=== PATIENT | female | born 1970 | race Caucasian/White ===

== ENCOUNTER 2017-12-17 05:54 | Inpatient (IN) | payer SELFPAY ==
[2017-12-14 10:59] LABS: Hematocrit 40.9 % (37-47); Hemoglobin 13.3 g/dl (12.0-15.0); Mean Corp Hgb Conc 32.5 g/gl (32-36); Mean Corpuscular Hgb 27.1 pg (27.0-32.0); Mean Corpuscular Volume 83.5 fL (81-99); Mean Platelet Vol. 9.8 fl (6.2-12.0); Platelet Count 188 K/mm3 (150-450); White Blood Count 4.3 K/mm3 (4.4-11.0)
[2017-12-14 11:02] LABS: Scan Indicated on CBC? Y/N YES- FLAGS NOTED
[2017-12-14 11:07] LABS: International Normalized Ratio 1.2; Prothrombin Time (Protime)PT. 14.3 SECONDS (11.7-14.9)
[2017-12-14 11:08] LABS: Partial Thromboplast Time 27.5 Seconds (24.1-36.2)
[2017-12-14 11:16] LABS: Pregnancy, Serum, hCG Quali. NEGATIVE Negative (0-9 Nonpreg)
[2017-12-14 11:21] LABS: Differential Comment SCANNED
[2017-12-17] VITALS (12 sets, daily range): BP systolic 90–140; BP diastolic 46–75; PULSE 56–74; RESP 16–18; TEMP 36.1–37.3; O2SAT 95–100; BMI 32.9
--- NOTE | 2017-12-17 | HYST_PTH ---
PATIENT: WIL SHORE LOC: MS2 U#:[id number] AGE/SX: 47/F ROOM: [facility] [place] [facility] [place]12/17/[address]: Dr. Jason Lion MD : 1970 BED: 1 DIS: 12/18/2017 SPEC #: [id number] RECD: 12/17/17 14:35 STATUS: MARYAN PAUL #: [id number] KATERYNA: 12/17/17 00:[address]: Jason Lion DEPT: SURGICAL PATHOLOGY RECD BY: Colton Lawler ENTERED: 12/17/17 14:35 SP TYPE: HYSTERECT OTHR DR: Dr. Dick Enamorado, DO Tissues: Uterus, NOS Procedures: Surgery Specimen Level V HEADER OPERATION: Total abdominal hysterectomy, bilateral salpingectomy, right oophorectomy PRE-OP DIAGNOSIS: Excessive and frequent menstruation with irregular cycle; intramural and submucous leiomyoma of uterus TISSUE SUBMITTED: Uterus, bilateral fallopian tubes, right ovary MICROSCOPIC DIAGNOSIS Uterus, hysterectomy: Cervix ? chronic inflammation and nabothian cysts. Endometrium ? secretory endometrium. Myometrium ? leiomyomas. Right and left fallopian tubes ? no pathologic change. Right ovary ? corpus luteal cyst and corpora albicantia. AM:law 12/18/17 MICROSCOPIC DESCRIPTION Slides are reviewed. GROSS DESCRIPTION Received in fixative is one container labeled with the patient's name and designated uterus. The specimen consists of a uterus with attached cervix and attached right and left fallopian tubes and a detached ovary. The uterus with cervix measures 13 x 9 x 7 cm and weighs 305 gm. The ectocervix is unremarkable and the cervical os is fishmouth in contour. The endocervical canal measures 3.6 cm in length and is grossly unremarkable. The endometrial cavity measures 6.5 x 4 cm. The endometrium is light moran, velvety and glistening and measures up to 0.2 cm in thickness. The myometrium measures 2.5 cm in greatest thickness and is distortion by multiple rubbery nodules representing leiomyomas and ranging in size from 0.5 cm to 4.3 cm. On cut sections, the nodules reveal a whorled appearance without areas of cyst formation, necrosis or hemorrhage. The nodules are intramural and submucosal in location. The right and left fallopian tubes are similar in appearance averaging 6 cm in length and 0.5 cm in average diameter. The fimbriated ends are normal in appearance and no mass lesions are seen. The ovary free in the container measures 4 x 2.5 x 1.2 cm and serial sections do not reveal mass lesions. Guide Alpine sections are submitted in 11 cassettes as follows: 1 - anterior cervix, 2 - posterior cervix, 3 & 4 - anterior uterine wall, 5 & 6 - posterior uterine wall, 7 ? largest myometrial mass, 8 ? smaller myometrial masses, 9 ? right fallopian tube, 10 ? left fallopian tube, 11 ? ovary free in container. / AM:law 12/17/17 TC:1 CPT: 66947
[2017-12-17 06:26] LABS: Internal QC Validated? YES +Cl - CLEAR BKGD; Pregnancy, Urine Negative Negative
--- NOTE | 2017-12-17 07:31 | OP.PCM_ITS ---
Problem List (1) Fibroid uterus Status: Chronic Qualifiers: Uterine leiomyoma location: intramural and submucous Qualified Code(s): D25.1 - Intramural leiomyoma of uterus; D25.0 - Submucous leiomyoma of uterus (2) Anemia Status: Chronic Qualifiers: Anemia type: iron deficiency Iron deficiency anemia type: chronic blood loss Qualified Code(s): D50.0 - Iron deficiency anemia secondary to blood loss (chronic) Report of Operation Date of Procedure: 12/17/17 Pre-Operative Diagnosis: Fibroid uterus with menorrhagia and chronic anemia Post-Operative Diagnosis: Same Surgery/Procedure Performed:: JAMES/Bilateral salpingectomy/right oophorectomy Description of Surgical Findings:: Large fibroid uterus about 16 weeks size with dense adhesions of bladder to lower uterine segment and anterior cervix. Left ovary with 4cm simple cyst. youth court judge: Mary Nix Type of Anesthesia:: General Anesthesiologist: Ezequiel Cifuentes Specimen's removed: Uterus, cervix, bilateral fallopian tubes Drains: dailey Estimated Blood Loss (mL): 300cc Fluids Replaced: 3000cc LR Description of Procedure: Pushpa was taken to the OR with IV running. She was given two grams of Cefotetan IV prior to the procedure as prophylaxis. SCDs were in place and operational from the preop area through surgery and into recovery. General anesthesia was introduced without complication. A dailey catheter was placed. The patient was then prepped and draped in the supine position. A Pfannesteil incision was then made through her previous lower abdominal scar. The underlying subcutaneous tissue was dissected down to the level of fascia using sharp and blunt dissection. The fascia was then incised in the midline and this incision was extended bilaterally using the Simental scissors. The upper portion of the fascial defect was then graped with two Kerwin clamps, elevated, aand the underlying rectus muscles were dissected off with sharp and blunt dissection. In a similar fashion the rectus muscles were from the lower portion of the fascial incision. The rectus muscles were then in the midline , the peritoneum identified and entered sharply. The peritoneal defect was extended using blunt retraction. A self retaining retractor was placed and the bowel packed away with damp sponges. Kerwin clamps were placed on the cornua of the uterus bilaterally. The right round ligament was then identified, grasped with a Sapna clamp. The round ligament was then suture ligated and cut. The anterior and posterior leaves of the Broad ligament were then cut down to the level of the uterine arteries. The vesicouterine peritoneum was then undermined and cut transversely and a bladder flap was created. The right infindibulopelvic ligament was then doubly clamped cut and suture ligated. The right uterine artery was then clamped with a Zeppalin clamp, cut and suture ligated. The paracervical tissue on the right was dissected down to the level of the vagina using a series of clamps, cuts, and suture ligation. Attention was then directed to the left side of the uterus which was dissected in a similar fashion as the right side except the ovary was preserved. Using two right angle Zeppellin clamps the vaginal cuff was clamped. The cervix was then amputated and the specimen removed. The vaginal cuff was closed with transfixion sutures at the angles and with two figure of eight stitches in the midline. Irrigation was then used. The lower pelvis appeared ry. Leigha was used over all pedicle sites and hemostasis assured. The peritoneum was then closed with 2-0 Vicryl. The rectus muscles reapproximated with interrupted sutures of 0-Vicryl. The fascia was closed with a running stitch of #1 Vicryl. The subcutaneous tissue was closed with 2-0 Vicryl. The skin was closed with a subcuticular stitch of 4-0 Monocryl. Sponge, lap, and needle counts were correct. She was reversed from anesthesia and taken to the recovery room in stable condition. - Complications none - Admit VTE Documentation VTE Present on Admission: No VTE Mechan Device Prophylaxis: SCD's VTE Pharm Prophylaxis ordered?: No
[2017-12-17] MEDS: Ketorolac 30 MG/ML Syringe IV ×3 (10:01→23:20)
[2017-12-17] MEDS: Dextrose 5%-Lactated Ringers 1,000 ML 125 ML IV ×2 (10:02→23:20)
[2017-12-17] MEDS: HYDROmorphone 1 MG/ML Syringe IV ×2 (11:04→11:49)
[2017-12-17] MEDS: Ondansetron 4 MG/2 ML Vial IV (11:12)
[2017-12-17] MEDS: Acetaminophen 500 MG Tablet 1000 MG PO ×2 (13:10→21:29)
[2017-12-17] MEDS: Cefazolin 1 GM/50 ML BAG IV (18:02)
[2017-12-18 02:30] VITALS: BP 96/60; PULSE 74; RESP 16; TEMP 37.3; O2SAT 98
[2017-12-18] MEDS: Cefazolin 1 GM/50 ML BAG IV (02:37)
[2017-12-18] MEDS: Ketorolac 30 MG/ML Syringe IV (05:46)
[2017-12-18] MEDS: Acetaminophen 500 MG Tablet 1000 MG PO ×2 (05:46→12:41)
[2017-12-18 06:20] LABS: Hematocrit 32.9 % (37-47); Hemoglobin 10.7 g/dl (12.0-15.0); Mean Corp Hgb Conc 32.5 g/gl (32-36); Mean Corpuscular Hgb 27.8 pg (27.0-32.0); Mean Corpuscular Volume 85.5 fL (81-99); Mean Platelet Vol. 10.5 fl (6.2-12.0); Platelet Count 168 K/mm3 (150-450); Red Blood Count 3.85 M/mm3 (4.2-5.4); White Blood Count 8.5 K/mm3 (4.4-11.0)
[2017-12-18 06:21] LABS: Scan Indicated on CBC? Y/N YES- FLAGS NOTED
[2017-12-18 06:50] LABS: Differential Comment SCAN
[2017-12-18 08:12] VITALS: BP 100/51; PULSE 75; RESP 18; TEMP 37.2; O2SAT 97
--- NOTE | 2017-12-18 08:36 | PCM.PN.OB ---
Subjective: Sitting in chair. Appears comfortable. Tolerating PO. Has voided. No significant vaginal bleeding. Pain resonably controlled. Objective: Afeb VSS. Hgb appropriate. - Physical Exam General: Alert, Oriented x3, Cooperative, No apparent distress Lungs: Clear to auscultation, Normal air movement Cardiovascular: Regular rate, Regular Rhythm Abdomen: Soft, Non Tender, Non-Distended, - - Incision dressing dry. Extremities: No edema, No Calf Tenderness Skin: No rashes Neurological: Neuro grossly intact Psych/Mental Status: Normal Affect Vital Signs Temp Pulse Resp BP Pulse Ox 98.9 F 75 18 100/51 L 97 12/18/17 08:12 12/18/17 08:12 12/18/17 08:12 12/18/17 08:12 12/18/17 08:12 Oxygen Delivery Method Room Air Weight: 180 lb 1.883 oz Body Mass Index (BMI) 32.9 Intake and Output for Last 24 Hours 0218 12/17/18 12/18/17 23:59 23:59 23:59 Intake Total 2626 / 2626 749 / 749 Output Total 600 / 600 1450 / 1450 Balance 2025 / 2025 -701 / -701 Laboratory Tests Past 24 Hrs 12/18/17 05:34 WBC 8.5 RBC 3.85 L Hgb 10.7 L Hct 32.9 L MCV 85.5 MCH 27.8 MCHC 32.5 RDW Not Reportable RDW Differential Not Reportable Plt Count 168 MPV 10.5 Differential Comment SCAN Assessment/Plan Doing well on POD#1 s/p JAMES/bilateral salpingectomy/right oophorectomy. Would like discharge home today. Cleared from postoperative perspective. Home going instructions and warnings given.
--- NOTE | 2017-12-18 08:38 | PCM.DC.SUM ---
Discharge Date and Diagnosis Date of Admission: 12/17/17 Date of Discharge: 12/18/17 - Primary Discharge Diagnosis S/P JAMES/bilateral salpingectomy/right oophorectomy - Secondary Discharge Diagnosis Chronic Problems Fibroid uterus (Chronic) Anemia (Chronic) Hospital Course and Treatment Operations: - - See above Summary of Care Provided: The patient is a 47 year old F [admitted for JAMES secondary to menorrhagia with sever anemia and fibroid uterus. JAMES/bilateral salpingectomy and right oophorectomy performed without complication. She made quick recovery and was discharged home on POD#1.] Discharge Diet: No Restrictions Discharge Activity: Return to Normal Activity, May Not Drive, May not drive while taking narcotic pain medications., May Shower Return to work on:: 01/14/18 May shower in (days): 0 May resume sexual activity in: 6 weeks Lifting Restrict to (lbs):: 15 Call your doctor if your incision/area has: Sudden Increased Bleeding, Increased Pain/ Swelling, Increased Redness, Foul Smelling Discharge, Swelling at the incision site Call your doctor if you observe: Fever of 101 or Higher, Inability to urinate, Inability to have a bowel movement, Using more than one pad per hour, Shortness of breath, Chest pain, Calf discomfort, Uncontrolled pain Remove Dressing in (days):: 1 Cleanse incision/area with: Soap & Water Home Medications: Medications to take at Discharge Ferrous Sulfate [Slow Fe] 325 mg PO TID 11/14/17 Vitamin E 800 unit PO DAILY 11/14/17 Cholecalciferol (Vitamin D3) [Vitamin D3] 1,000 unit PO DAILY 12/10/17 Cyanocobalamin (Vitamin B-12) [Vitamin B-12] 1,000 mcg PO DAILY 12/10/17 Norethindrone [Aygestin] 10 mg PO DAILY 12/10/17 Wheat Grass 10 ml PO DAILY 12/10/17 Primary Care Physician: Dick Enamorado [Primary Care Provider] - Please Follow Up With: Jason Lion MD When: one week Disposition: Home Minutes spent on discharge:: 15 Patient Condition:: Good Meaningful Use Info Meaningful Use Diagnoses (Choose all that apply): None applicable
[2017-12-18 08:44] VITALS: BP 111/63; PULSE 83; RESP 18; TEMP 38.2; O2SAT 97
--- NOTE | 2017-12-18 08:44 | PCM.DC.AHY ---
Discharge Diet: No Restrictions Discharge Activity: Return to Normal Activity, May Not Drive, May not drive while taking narcotic pain medications., May Shower Return to work on:: 01/14/18 May shower in (days): 0 May resume sexual activity in: 6 weeks Call your doctor if your incision/area has: Sudden Increased Bleeding, Increased Pain/ Swelling, Increased Redness, Foul Smelling Discharge, Swelling at the incision site Call your doctor if you observe: Fever of 101 or Higher, Inability to urinate, Inability to have a bowel movement, Using more than one pad per hour, Shortness of breath, Chest pain, Calf discomfort, Uncontrolled pain Remove Dressing in (days):: 1 Cleanse incision/area with: Soap & Water Allergies/Adverse Reactions: Allergies No Known Allergies Allergy (Verified 12/10/17 11:14) Medications to take at Discharge Ferrous Sulfate [Slow Fe] 325 mg PO TID 11/14/17 Vitamin E 800 unit PO DAILY 11/14/17 Cholecalciferol (Vitamin D3) [Vitamin D3] 1,000 unit PO DAILY 12/10/17 Cyanocobalamin (Vitamin B-12) [Vitamin B-12] 1,000 mcg PO DAILY 12/10/17 Wheat Grass 10 ml PO DAILY 12/10/17 Ibuprofen [Motrin] 800 mg PO TID PRN PRN #30 tab 12/18/17 Oxycodone [Oxyir] 5 - 10 mg PO Q4H PRN PRN 7 Days #28 tab 12/18/17 The following prescriptions were given: Oxycodone [Oxyir] 5 - 10 mg PO Q4H PRN PRN 7 Days #28 tab PRN Reason: Mod-Severe Pain (4-1010) Ibuprofen [Motrin] 800 mg PO TID PRN PRN #30 tab PRN Reason: mild to moderate pain Primary Care Physician: Dick Enamorado [Primary Care Provider] - Please Follow Up With: Jason Lion MD When: one week Proposed Discharge Date: 12/18/17
--- NOTE | 2017-12-18 11:07 | CASEMGMT ---
SABINO CM review: attempted to see pt yesterday afternoon after surgery. Pt was sleeping. Today she is being dc'd. No dc needs identified. she will have assistance @ home. Amanda STRATTON RN ACM
[2017-12-18 12:37] VITALS: BP 111/63; PULSE 83; RESP 18; TEMP 38.2; O2SAT 97
== END 2017-12-18 13:55 | disposition home or self-care (01) | DRG 743 ==
LOC: ACINP 05:56 → MS2 08:08
PROVIDERS: Anesthesiology; Admitting Provider Obstetrics & Gynecology; Family Provider Family Medicine; PCP Family Medicine; Visit Provider Obstetrics & Gynecology
PROC: 0UT90ZZ Resection of Uterus, Open Approach (ICD-10-PCS; principal; 2017-12-17 07:10)
DX: D25.1 Intramural leiomyoma of uterus (principal); D25.0 Submucous leiomyoma of uterus; N83.292 Other ovarian cyst, left side; D50.0 Iron deficiency anemia secondary to blood loss (chronic); N92.1 Excessive and frequent menstruation with irregular cycle
CPT/HCPCS: 36415; 81025; 84703; 85027; 85610; 85730; 86850; 86900; 88307; 94762; 97802; J7120; J2405

== ENCOUNTER 2019-02-25 21:28 | Emergency (ER) | payer OTHER, SELFPAY ==
[2019-02-25 21:29] VITALS: BP 148/88; PULSE 89; RESP 16; TEMP 36.6; O2SAT 100; BMI 33.4
[2019-02-25] MEDS: 0.9% Normal Saline 1,000 ML 1000 ML IV (21:57)
[2019-02-25 22:16] LABS: Absolute Lymphocyte Count 1.01 X10^3/ul (0.83-4.51); Absolute Neutrophil Count 6.2 X10^3/uL (2.0-7.7); Basophil# 0.04 X10^3/uL; Basophil% 0.5 % (0-1); Eosinophil# 0.03 X10^3/uL; Eosinophils% 0.4 % (0-5); Hematocrit 43.6 % (37-47); Hemoglobin 15.6 g/dl (12.0-15.0); Lymphocyte # 1.01 X10^3/ul (4.0); Lymphocyte % 13.2 % (19-41); Mean Corp Hgb Conc 35.8 g/gl (32-36); Mean Corpuscular Hgb 32.1 pg (27.0-32.0); Mean Corpuscular Volume 89.7 fL (81-99); Mean Platelet Vol. 10.6 fl (6.2-12.0); Monocyte# 0.35 X10^3/uL; Monocyte% 4.6 % (0-10); Neutrophil # 6.24 X10^3/uL (2.7-7.7); Neutrophil % 81.2 % (47-70); Platelet Count 198 K/mm3 (150-450); Red Blood Count 4.86 M/mm3 (4.2-5.4); White Blood Count 7.7 K/mm3 (4.4-11.0)
[2019-02-25 22:20] LABS: POSITIVE COUNT NO; POSITIVE DIFFERENTIAL NO; POSITIVE MORPHOLOGY NO
[2019-02-25 22:21] LABS: Anion Gap 9 (5-15); BUN 9 mg/dL (7-18); BUN/Creat Ratio 10.5 RATIO (10-20); Calcium,Total 8.7 mg/dL (8.5-10.1); Chloride 107 mmol/L (98-107); Creatinine, Serum 0.86 mg/dL (0.55-1.02); EST Glomerular Filtration Rate 74 mL/min (>60); Est Glom Filt Rate - Afr Amer 90 mL/min (>60); Glucose 125 mg/dL (74-106); Potassium 3.4 mmol/L (3.5-5.1); Sodium Level 142 mmol/L (136-145)
[2019-02-25 22:35] LABS: International Normalized Ratio 1.1; Prothrombin Time (Protime)PT. 14.2 SECONDS (11.7-14.9)
[2019-02-25 22:36] LABS: Partial Thromboplast Time 33.1 Seconds (24.1-36.2)
--- NOTE | 2019-02-25 22:48 | ED.VISSUMM ---
- ER Visit Summary Date of Service: 02/25/19 Chief Complaint: Blood in stool History of Present Illness: The patient is a [address] Enamorado. She reports that approximately 430 this afternoon she went in to urinate and had bright red blood from her rectum. She denies any stool with this. However, she reports that since then she has had diarrhea 3 times and there is been Mg bright red blood with this as well. She denies any abdominal pain. No nausea or vomiting. No dysuria or frequency. She has never had a colonoscopy. She is not on any blood thinners. Physical Examination: Vitals: Stable. Afebrile. General: Well-nourished and well-developed. Head: Normocephalic atraumatic. Neck: Supple, no lymphadenopathy. No JVD. Nontender. Cardiovascular: Regular rate and rhythm. No murmurs. Respiratory: No respiratory distress. Clear to auscultation bilaterally. Abdominal: Soft, nontender, nondistended, normal bowel sounds. No guarding, rebound, or peritoneal signs. Rectal: Anal fissure at 12:00 in the prone position. Back: Nontender. Extremities: Nontender, no edema. Skin: Normal color, no rash. Neurologic: Alert and oriented ?3. Cranial nerves II through XII are intact. Normal strength and sensation. Psych: Normal affect. Test Results: CBC is marked for hemoglobin of 15.6. Her last hemoglobin December 2017 was 10.7. Chem-7 shows potassium 3.4 and glucose 125. Coags are normal. Emergency Department Course and Treatment: Patient had negative prostatic vital signs. She was given a liter of normal saline. She is resting comfortably. Treatment Plan: Patient is stable for discharge. She is instructed to follow-up Dr. Holland soon as possible. Return to emerge department for worsening breathing bleeding or any other concerns. Disposition: To home in improved and stable condition. Impression: 1. Stable lower GI bleed. 2. Anal fissure. This note was generated with IroFitation software. It may contain incorrect words, spelling, and punctuation that were not noted in review of the chart prior to signing ED Disposition - Plan for ED Patient: Instructions: ED Hematochezia Stable Referrals: Jaron Holland MD [STAFF PHYSICIAN] - As soon as possible
[2019-02-25 22:51] VITALS: BP 115/77; BP 126/75; BP 134/81; PULSE 60; PULSE 64; PULSE 78
[2019-02-25 22:56] VITALS: BP 126/75; PULSE 64; RESP 16
== END 2019-02-25 23:05 | disposition home or self-care (01) ==
LOC: ED 22:00
PROVIDERS: Emergency Provider Emergency Medicine; Family Provider Family Medicine; PCP Family Medicine
DX: K92.1 Melena (principal); K60.2 Anal fissure, unspecified
CPT/HCPCS: 80048; 85025; 85610; 85730; 96360; 99284; J7030

== ENCOUNTER 2019-03-20 07:33 | Day surgery (SDC) | payer SELFPAY ==
[2019-03-03 10:08] VITALS: BMI 33.4
--- NOTE | 2019-03-03 10:08 | HP_ITS ---
Intake Vital Signs 03/03/19 Body Mass Index (BMI) 33.4 03/03/19 Height 5 ft 2 in 03/03/19 Weight: 180 lb 7 oz 03/03/19 Body Mass Index (BMI) 33.0 03/03/19 Blood Pressure 113/78 03/03/19 Blood Pressure Location Rt brachial 03/03/19 Blood Pressure Position Sitting 03/03/19 Respiratory Rate 18 03/03/19 Pulse Rate 68 03/03/19 Pulse Ox 98 Intake Visit Reasons: RECTAL BLEEDING Chief Complaint: blood in stool, no previous colonoscopy Unhairer Required: No Is patient in pain?: No Allergies No Known Allergies Allergy (Verified 03/03/19 09:32) Medications Vitamin E 800 unit PO DAILY 11/14/17 [History Confirmed 03/03/19] Cyanocobalamin (Vitamin B-12) [Vitamin B-12] 1,000 mcg PO DAILY 12/10/17 [History Confirmed 03/03/19] Is last menstrual period known: No Post menopausal: Yes Patient : No PFSH Medical History Blood in stool (Acute) Surgical History History of hysterectomy (Acute) Family History Sister Diabetes Father Cancer lung Social History Smoking Status: Never smoker HPI HPI HPI: WIL SHORE, is a 48 F who presents to the office today for HPI HPI Surgical H&P: Yes HPI: WIL SHORE, is a 48 F who presents to the office today for evaluation for colonoscopy. Patient was seen in [facility]'s emergency department on 02/25/2019. She had an episode of bright red rectal bleeding from her rectum. She has noticed trace amounts of blood since then. She has not been complaining of any abdominal pain she has had diarrhea which she thought was related to taking a fish oil tablet. She has no pain with bowel movements. She is not on any other current blood thinners and she has never had a colonoscopy. The emergency department she was noted to have an anal fissure at the 12 o'clock position her CBC was normal showing a hemoglobin of 15.6. She presents today for evaluation for colonoscopy. ROS General General: No weight change, appetite, fatigue, colon cancer, breast cancer or weakness HEENT HEENT: No difficulty swallowing, eye injury, eye surgery, swollen glands or hoarseness Endo Endocrine: No thyroid disease, diabetes mellitus, thyroid cancer, Hair loss, heat intolerance or cold intolerance Cardio Cardiovascular: No murmur, pacemaker, heart disease, atrial fibrillation, high blood pressure, heart attack, heart stent, palpitations, shortness of breat with exertion or chest pain Resp Respiratory: No shortness of breath, No sleep apnea, No cough, No COPD, No asthma, No emphysema, No wheezing Gastro Gastrointestinal: Yes abdominal pain, No nausea or vomiting, Yes diarrhea, No constipation, Yes blood in stool, No acid reflux, No hemorrhoids, No ulcers, No gallbladder problem, No black,tarry stools Neuro Neurologic: No weakness Exam Const General: no acute distress, well developed, well hydrated Orientation: oriented to person, oriented to place, oriented to time [facility] Head: normocephalic, atraumatic Ears: external ears normal Mouth: moist mucous membranes Eyes Sclera: sclerae normal Pupils: normal by confrontation Neck Neck: no lymphadenopathy noted Neck mass: No Thyroid: thyroid normal, symmetrical Chest Chest palpation & inspection: normal inspection of the chest Resp Effort & Inspection: normal respiratory effort Auscultation: clear to auscultation bilaterally Percussion: percussion normal Cardio Rate: regular rate Rhythm: regular rhythm Heart Sounds: no murmurs GI Palpation: soft, no hepatosplenomegaly, no masses, nontender Rectal Exam: other Other: Rectal exam deferred. Extrem General: normal to inspection, no clubbing, cyanosis or edema Assessment & Plan Problems 1. Rectal hemorrhage K62.5 Plan I have discussed the above with the patient. I have offered the patient colonoscopy for evaluation. I have explained the risks/benefits of the procedure and described the procedure. I have discussed the risks with the patient, including but not limited to: infection, bleeding, perforation of the GI tract requiring emergency surgery, inability to complete the procedure, injury to any internal organs, complications of anesthesia, etc. - the patient understands and agrees to proceed. I have answered all the patient's questions to the patient's satisfaction and the patient has no further questions. The patient has been given instructions for the colon cleansing preparation. Coding Level of Care Code Off vis,new,level 3 Diagnoses Rectal hemorrhage K62.5 03/03/19 1008 <Electronically signed by Jaron Holland MD> Date Jaron Holland MD I have re-examined the patient. There are no clinical changes since date of exam.
[2019-03-20] VITALS (7 sets, daily range): BP systolic 114–120; BP diastolic 73–82; PULSE 58–68; RESP 14–16; TEMP 36.5–36.8; O2SAT 100; BMI 32.6
--- NOTE | 2019-03-20 08:45 | COLBX_PTH ---
PATIENT: WIL SHORE LOC: EN U#:[id number] AGE/SX: 48/F ROOM: RE03/20/[address]: Dr. Jaron Holland MD : 1970 BED: DIS: 03/20/2019 SPEC #: [id number] RECD: 03/20/19 10:15 STATUS: MARYAN PAUL #: [id number] KATERYNA: 03/20/19 08:[address]: Jaron Holland DEPT: SURGICAL PATHOLOGY RECD BY: Son Grullon ENTERED: 03/20/19 10:57 SP TYPE: COLON BX OTHR DR: Dr. Dick Enamorado DO Tissues: Sigmoid colon biopsy Procedures: Surgery Specimen Level IV HEADER OPERATION: Colonoscopy PRE-OP DIAGNOSIS: Rectal bleeding TISSUE SUBMITTED: Sigmoid polyp and stalk MICROSCOPIC DIAGNOSIS Sigmoid polyp: Large tubulovillous adenoma (2.5 x 2 x 1.8 cm). Presumed stalk is free of adenomatous change. CE:law 03/21/19 COMMENT Case has been reviewed in consultation with Dr. Person who concurs with the above diagnosis. IDC:AM MICROSCOPIC DESCRIPTION Slides are reviewed. GROSS DESCRIPTION Received in fixative is one container labeled with the patient's name and designated sigmoid polyp. The specimen consists of a polypoid fragment of moran tissue measuring 2.5 x 2 x 1.8 cm. Also present in the specimen container is an irregular fragment of elongated tissue presumed to be stalk. This fragment is inked, bisected and totally submitted with the polypoid fragment which is serially sectioned in one cassette. / AM:law 03/20/19 TC:1 CPT: 26209
--- NOTE | 2019-03-20 09:29 | OP.ENDO_ITS ---
03/20/2019 Dick Enamorado Re : Colonoscopy procedure for Pushpa Millan Dear Fei This procedure was performed on March. My impressions and recommendations are as follows: Impressions : - One 32 mm polyp in the sigmoid colon, removed with a hot snare. Resected and retrieved. - Non-bleeding internal hemorrhoids. Recommendations : - Repeat colonoscopy in 3 years for surveillance. - Return to my office in 1 week. - Continue present medications. My findings are described in the full procedure note, which is enclosed. If I can be of further assistance, please feel free to contact me at Doctor phone number(s): , Fax: [phone], Work: . Sincerely, MD Jaron Hernandez MD 03/20/2019 9:28:33 AM This report has been signed electronically.
== END 2019-03-20 10:14 | disposition home or self-care (01) ==
LOC: EN 07:36 → AC 07:37
PROVIDERS: Family Provider Family Medicine; PCP Family Medicine; Referring Provider Family Medicine; Visit Provider Surgery
PROC: 0DJD8ZZ Inspection of Lower Intestinal Tract, Via Natural or Artificial Opening Endoscopic (ICD-10-PCS; CPT 45378; principal; 2019-03-20 08:40)
DX: D12.5 Benign neoplasm of sigmoid colon (principal); K64.8 Other hemorrhoids; K62.5 Hemorrhage of anus and rectum
CPT/HCPCS: 45381; 45385; 88305; J7120; A4648; J1610

== ENCOUNTER → 2021-09-20 07:06 | Outpatient (CLI) | payer SELFPAY, OTHER ==
--- NOTE | 2021-09-20 07:08 | BI_ITS ---
MAMMOGRAPHY - BILATERAL SCREENING REASON FOR EXAM: Female, 51 years old. Routine annual screening examination. PERTINENT HISTORY: Grandmother with breast cancer. TECHNIQUE: Digital bilateral breast kanika (3D mammographic acquisition) in the CC and MLO projections. 2-D mediolateral oblique (MLO) and craniocaudad (CC) views of both breasts were obtained. CAD: Full Field Digital Mammography with Computer Added Detection was performed. COMPARISON: None. Baseline examination. FINDINGS: Breast Composition: The breasts are heterogeneously dense, which may obscure small masses. There is a 7.9 mm x 7.3 mm well-defined nodule in the 3 o''clock position of the left breast. Correlation with ultrasound is recommended. No other significant abnormalities are identified. BI/SCRN MAMM (CAD)W/KANIKA BILAT IMPRESSION: 7.9 mm x 7.3 mm well-defined nodule at the 3 o''clock position of the left breast. Correlation with ultrasound is recommended. ASSESSMENT CATEGORY: BIRADS Category 0: Incomplete. Need additional imaging evaluation. A letter regarding these results will be sent to the patient by the facility within 30 days. Approximately 10% of breast cancers are not detected by mammography. A normal mammogram should not delay biopsy of a clinically suspicious abnormality. [id number] Electronically Signed: Brendan Collins MD at 8:59 EST , Service support ,
== END ==
PROVIDERS: PCP Family Medicine; Referring Provider Obstetrics & Gynecology; Visit Provider Obstetrics & Gynecology
DX: Z12.31 Encounter for screening mammogram for malignant neoplasm of breast (principal); N63.25 Unspecified lump in the left breast, overlapping quadrants
CPT/HCPCS: 77063; 77067

== ENCOUNTER → 2021-10-27 10:39 | Outpatient (CLI) | payer SELFPAY, OTHER ==
--- NOTE | 2021-10-27 10:41 | US_ITS ---
STUDY: ULTRASOUND BREAST - LEFT REASON FOR EXAM: Female, 51 years old. Abnormal screening mammogram. TECHNIQUE: Axial and longitudinal images of the LEFT breast were performed with a high resolution ultrasound transducer. # OF IMAGES: 15 COMPARISON: Comparison is made with prior mammogram dated 09/20/2021. FINDINGS: LEFT Breast: There is a 5 mm x 7 mm x 4 mm cyst at the 3 o''clock position of the breast at 3 cm from nipple. There is an 8 mm x 8 mm x 6 mm cyst at the 4 o''clock position of the breast at 4 cm from nipple. US/Breast Limited Unilateral IMPRESSION: 2 small cysts are seen at the 3 o''clock and 4 o''clock position of the breast as described. Routine mammographic follow-up is recommended. ASSESSMENT CATEGORY: BIRADS Category 2: Benign. A letter regarding these results will be sent to the patient by the facility within 30 days. Electronically Signed: Brendan Collins MD at 12:36 EST , Service support ,
== END ==
PROVIDERS: PCP Family Medicine; Referring Provider Obstetrics & Gynecology; Visit Provider Obstetrics & Gynecology
DX: N60.02 Solitary cyst of left breast (principal)
CPT/HCPCS: 76642